=== PATIENT | female | born 1950 | race Caucasian/White ===

== ENCOUNTER → 2019-11-02 15:00 | Outpatient (BNVA) | payer MEDICARE, SELFPAY | PROVIDERS: Family Provider Internal Medicine; PCP Internal Medicine; Visit Provider Nurse Practitioner Family | DX: E03.9 Hypothyroidism, unspecified (principal); E11.9 Type 2 diabetes mellitus without complications; I10 Essential (primary) hypertension; I50.22 Chronic systolic (congestive) heart failure; R53.83 Other fatigue; M25.519 Pain in unspecified shoulder | CPT/HCPCS: 80053; 83036; 84443; 85025 ==

== ENCOUNTER 2019-11-29 14:22 | Outpatient (CLI) | payer MEDICARE, SELFPAY ==
--- NOTE | 2019-11-29 14:28 | XR_ITS ---
WS: [id number] XR hip LT 2-3V wo/w pel* [id number] REASON FOR EXAM: Left hip pain FINDINGS: Mild degenerate changes in the acetabulum on the left hip. No fractures of the left hip are seen. The ilium, ischium, and pubis are normal. XR/XR hip LT 2-3V wo/w pel* [id number] IMPRESSION: Early osteoarthritic changes of the left hip
== END 2019-11-29 14:23 | disposition home or self-care (01) ==
LOC: RAD 14:27
PROVIDERS: PCP Internal Medicine; Visit Provider Internal Medicine
DX: M25.552 Pain in left hip (principal)
CPT/HCPCS: 73502

== ENCOUNTER → 2020-01-26 12:27 | Outpatient (BNVA) | payer MEDICARE, SELFPAY | PROVIDERS: PCP Internal Medicine; Referring Provider Nurse Practitioner Family; Visit Provider Anesthesiology Pain Medicine | DX: G89.29 Other chronic pain (principal); M25.552 Pain in left hip; M54.5 Low back pain; M89.49 Other hypertrophic osteoarthropathy, multiple sites; I50.9 Heart failure, unspecified; Z79.891 Long term (current) use of opiate analgesic | CPT/HCPCS: 99204 ==

== ENCOUNTER 2020-07-02 13:26 | Outpatient (CLI) | payer MEDICARE, SELFPAY ==
--- NOTE | 2020-07-02 13:30 | USCV_ITS ---
Ellen Guerra Age: 69 Gender: F : 1950 Exam Date: 07/02/2020 13:46 Ordering Phys: Sylvie Beckman MD ([email or web address]) Technologist: Jenifer Cline Exam Location: [facility] [place] Indication: MV STENOSIS BP: / HR: 113 Rhythm: Atrial fibrillation Technical Quality: Adequate MEASUREMENTS (Male / Female) Normal Values 2D ECHO LV Diastolic Diameter PLAX 3.7 cm 4.2 - 5.9 / 3.9 - 5.3 cm LV Systolic Diameter PLAX 2.6 cm LV Chamber Size 3.2 cm IVS Diastolic Thickness 1.1 cm 0.6 - 1.0 / 0.6 - 0.9 cm IVS Systolic Thickness 1.5 cm LVPW Diastolic Thickness 1.3 cm 0.6 - 1.0 / 0.6 - 0.9 cm LVPW Systolic Thickness 1.5 cm RV Chamber Size 3.2 cm LVOT Diameter 2.0 cm LV Ejection Fraction 2D Teich 59.4 % LV Ejection Fraction MOD 2C 64.7 % LV Ejection Fraction 2C AL 64.5 % LA Diameter 4.4 cm LA Width 4.0 cm LA Height 5.5 cm RA Width 2.5 cm RA Height 4.7 cm Aorta at Sinotubular Diameter 2.8 cm M-MODE LV Diastolic Diameter MM 4.5 cm 4.2 - 5.9 / 3.9 - 5.3 cm LV Systolic Diameter MM 3.4 cm LV Ejection Fraction MM Teich 48.1 % IVS Diastolic Thickness MM 1.0 cm 0.6 - 1.0 / 0.6 - 0.9 cm IVS Systolic Thickness MM 1.1 cm LVPW Diastolic Thickness MM 1.0 cm 0.6 - 1.0 / 0.6 - 0.9 cm LVPW Systolic Thickness MM 1.3 cm RV Diastolic Diameter MM 2.3 cm Aortic Annulus Diameter 3.0 cm LA Ao Ratio MM 1.5 MV E Point Septal Separation 0.8 cm DOPPLER AV Peak Velocity 137.0 cm/s LVOT Peak Velocity 80.0 cm/s AV Area Cont Eq vti 2.1 cm squared AV Area Cont Eq pk 1.9 cm squared MV Area PHT 4.1 cm squared MV E' Velocity 75.5 cm/s Mitral E to MV E' Ratio 16.8 Mitral E to LV E' Lateral Ratio 17.0 Mitral E to LV E' Septal Ratio 16.8 TR Peak Velocity 129.1 cm/s TR Peak Gradient 6.7 mmHg TR Mean Velocity 81.4 cm/s TR Mean Gradient 3.3 mmHg TR Velocity Time Integral 22.7 cm TV Peak E Velocity 94.0 cm/s Right Atrial Pressure 3.0 mmHg Pulmonary Artery Systolic Pressu 9.7 mmHg PV Peak Velocity 66.0 cm/s RV Acceleration Time 0.1 s RV Ejection Time 0.3 s RV AcT/ET 0.4 FINDINGS Left Ventricle Normal left ventricular cavity size. Normal left ventricular wall thickness. Normal left ventricular systolic function. Left ventricular ejection fraction is estimated at 55 %. No diagnostic regional wall motion abnormality. Rhythm precludes evaluation of diastolic function. Abnormal septal motion consistent with conduction abnormality. Right Ventricle Normal right ventricular size and systolic function. Right ventricular systolic pressure 9.7 mmHg. Right Atrium Normal right atrial size. Left Atrium Moderately increased left atrial size. Mitral Valve Mild mitral annular calcification. Thickened mitral valve. No mitral valve stenosis. Mild mitral valve regurgitation. Aortic Valve Mildly thickened trileaflet aortic valve. No aortic valve stenosis. Mild aortic valve regurgitation. Tricuspid Valve Structurally normal tricuspid valve. Trace tricuspid valve regurgitation. Pulmonic Valve Structurally normal pulmonic valve. Trace pulmonary valve regurgitation. Pericardium No pericardial effusion. Aorta Normal size aortic root and proximal ascending aorta. CONCLUSIONS 1. This is a technically difficult study. 2. Normal left ventricular cavity size and systolic function. Left ventricular ejection fraction is estimated at 55 %. No diagnostic regional wall motion abnormality. Abnormal septal motion consistent with conduction abnormality. 3. Normal right ventricular size and systolic function. 4. Mild aortic valve regurgitation. 5. When compared to previous echocardiogram dated 12/13/2018, there may not have been any significant change. Sylvie Beckman MD (Electronically Signed) Final Date: 03 July 2020 17:29 S
== END 2020-07-02 13:27 | disposition home or self-care (01) ==
LOC: US 13:30
PROVIDERS: PCP Internal Medicine; Visit Provider Internal Medicine Cardiovascular Disease
DX: I08.0 Rheumatic disorders of both mitral and aortic valves
CPT/HCPCS: 93306

== ENCOUNTER → 2020-08-20 09:23 | Outpatient (BNVA) | payer MEDICARE, SELFPAY | PROVIDERS: PCP Internal Medicine; Visit Provider Anesthesiology Pain Medicine | DX: G89.29 Other chronic pain (principal); M54.9 Dorsalgia, unspecified; M89.49 Other hypertrophic osteoarthropathy, multiple sites; M25.552 Pain in left hip; M25.512 Pain in left shoulder; I50.32 Chronic diastolic (congestive) heart failure | CPT/HCPCS: 99214 ==

== ENCOUNTER → 2020-10-01 14:22 | Outpatient (BNVA) | payer MEDICARE, SELFPAY | PROVIDERS: PCP Internal Medicine; Visit Provider Anesthesiology Pain Medicine | DX: G89.29 Other chronic pain (principal); M25.552 Pain in left hip; M54.9 Dorsalgia, unspecified | CPT/HCPCS: 20610; 77002; J1030; J3490 ==

== ENCOUNTER → 2020-11-05 15:24 | Outpatient (BNVA) | payer MEDICARE, SELFPAY | PROVIDERS: PCP Internal Medicine; Visit Provider Internal Medicine Cardiovascular Disease | DX: I11.0 Hypertensive heart disease with heart failure (principal); I50.32 Chronic diastolic (congestive) heart failure; I34.0 Nonrheumatic mitral (valve) insufficiency; E03.9 Hypothyroidism, unspecified | CPT/HCPCS: 80053; 80061; 84439; 84443; 84481; 85025 ==

== ENCOUNTER → 2021-03-14 09:51 | Outpatient (BNVA) | payer MEDICARE, SELFPAY | PROVIDERS: PCP Internal Medicine; Visit Provider Internal Medicine | DX: R30.0 Dysuria (principal) | CPT/HCPCS: 81003 ==

== ENCOUNTER 2021-12-20 17:12 | Emergency (ER) | payer MEDICARE, SELFPAY ==
[2021-12-20 17:20] VITALS: BP 128/88; PULSE 125; RESP 20; TEMP 37; O2SAT 98
--- NOTE | 2021-12-20 17:24 | ECG_ITS ---
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 Measurements Intervals [place] Rate: 119 P: LA: QRS: 75 QRSD: 89 T: 13 QT: 314 QTc: 442 Interpretive Statements ATRIAL FIBRILLATION WITH RAPID VENTRICULAR RESPONSE LOW QRS VOLTAGE IN PRECORDIAL LEADS [QRS DEFLECTION < 1.0 mV IN CHEST LEADS] MINIMAL ST DEPRESSION [0.025+ mV ST DEPRESSION] ABNORMAL RHYTHM ECG Compared to ECG 02/23/2019 05:47:59 Low QRS voltage now present ST (T wave) deviation now present Atrial abnormality no longer present T-wave abnormality no longer present Electronically Signed On 12-22-2021 23:41:35 CDT by Yoan Lancaster M.D. [id number]
--- NOTE | 2021-12-20 18:14 | PC.NURSE ---
This nurse went to grab the patient from the waiting room. Patient was in the bathroom finishing up, when this nurse walked in and asked if she was almost done. She said yes then proceeded to ask this nurse if it was past 1600, because that is her husbands masturbation time and he'll lay you out if you mess it up . When this nurse got the patient into the wheelchair, the patient asked if this nurse was taking her to go watch (this nurse) masturbate. This nurse did not respond. After we got under way, the patient said that it wouldn't be bad (watching her masturbate), but he points it at her, and she needs more nourishment than sperm. After we got into the ER, the patient stated that it wouldn't be so bad, but he eats garlic and onions. Then, once we got into the room, the patient asked who does she has to blow around here to get a cup of water . This nurse responded that she can get some water after seeing the doctor.
--- NOTE | 2021-12-20 18:32 | CTR_ITS ---
PROCEDURE INFORMATION: Exam: CT Head Without Contrast Exam date and time: 12/20/2021 7:14 PM Age: 71 years old Clinical indication: Altered mental status/memory loss; Additional info: AMS TECHNIQUE: Imaging protocol: Computed tomography of the head without contrast. Sagittal and coronal reformatted images were created and reviewed. Radiation optimization: All CT scans at this facility use at least one of these dose optimization techniques: automated exposure control; mA and/or kV adjustment per patient size (includes targeted exams where dose is matched to clinical indication); or iterative reconstruction. COMPARISON: CT head wo con* [id number] 12/13/2018 11:03 PM RADIATION DOSE METRICS: Total DLP (mGy-cm): 1023.28 FINDINGS: Brain: No acute intracranial hemorrhage. No acute infarct. No intra-axial or extra-axial masses. Baker-white matter differentiation is preserved. No cerebral edema. No extra-axial fluid collections. No midline shift. No evidence for Chiari 1 malformation. 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 Stable mild atrophy of the brain parenchyma. Stable moderately decreased attenuation in the deep white matter, consistent with moderate chronic microangiopathic change. New large area of encephalomalacia consistent with an old infarct in the right temporal lobe. Cerebral ventricles: No hydrocephalus. Paranasal sinuses: Visualized paranasal sinuses are clear. Mastoid air cells: Mastoid air cells are clear bilaterally. Orbital cavities: Globes and lenses, extraocular muscles, and optic nerves are intact bilaterally. No acute intraorbital abnormality. Nasal cavity: Mild left nasal septal deviation. Bones/joints: No acute fracture. Soft tissues: The extracranial soft tissues are unremarkable. Vasculature: Atherosclerotic changes in the visualized arteries. CT/CT head wo con* [id number] IMPRESSION: 1. No acute abnormality of the brain. 2. 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 3. Stable mild atrophy of the brain parenchyma. 4. Stable moderate chronic white matter microangiopathic change. 5. New large area of encephalomalacia consistent with an old infarct in the right temporal lobe. 6. Incidental/nonacute findings are listed in the report.
--- NOTE | 2021-12-20 18:37 | ED_ITS ---
HPI - General Adult General: Chief complaint: Psychiatric Symptoms Stated complaint: mhe Time Seen by Provider: 12/20/21 17:23 History of Present Illness: HPI: [71]yo patient w/ hx of bipolar disorder and schizophrenia BIBA for acute psychosis. for On arrival, the patient is AAOx3 and cooperative with my evaluation. No focal complaints of chest pain, shortness of breath, palpitations, N/V, focal GI/ complaints. Currently denies SI/HI. No complaints of hallucinations. Onset: acute on chronic Duration: ongoing Location: home Severity: severe Associated symptoms: Deny chest pain, dyspnea, nausea, rash, palpitations or vomiting Review of Systems Const: Denies: fever(s) or chills Eyes: Denies: change in vision ENMT: Denies: mouth pain Card: Denies: chest pain or palpitations Resp: Denies: dyspnea or non-productive cough GI: Denies: abdominal pain, nausea, vomiting or diarrhea : Denies: dysuria Musc: Denies: extremity pain Skin/Breast: Denies: rash or new lesions Neuro: Denies: weakness in extremities Psych: Reports: mood swings and other (+Delusions) Chato/Lymph: Denies: easy bruising PFSH ED PFSH: Medical History Atrial fibrillation Carpal tunnel syndrome of right wrist FH: cholecystectomy 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 senior living (current) use of opiate analgesic Mitral regurgitation Pain management contract signed Unspecified systolic (congestive) heart failure Surgical History H/O tubal ligation H/O: hysterectomy Family History Father , AGE 56 Cancer Diabetes Other CAD (coronary artery disease) 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 Social History Smoking and tobacco status: never smoked Second hand smoke exposure: No Alcohol intake: never Marital status: History of recent travel: No Current gender identity: Female Physical Exam Const: COMMON NORMALS: alert HENMT: COMMON NORMALS: atraumatic HEAD & SCALP: atraumatic MOUTH: moist mucous membranes not abnormal Eye: COMMON NORMALS: EOMs intact bilaterally and conjunctivae normal CONJUNCTIVA: Yes conjunctivae normal Neck/C-Spine: COMMON NORMALS: full ROM and supple Resp: COMMON NORMALS: normal respiratory effort and clear to auscultation bilaterally AUSCULTATION: clear to auscultation bilaterally Cardio: OTHER: +irregular irregular rythm GI: COMMON NORMALS: Soft to palpation and non-tender PALPATION: Yes Soft to palpation Extremity: COMMON NORMALS: full ROM Neuro: SENSORIUM/ORIENTATION: Yes alert MOTOR EXAM: No Abnormal motor strength present and Other motor observations present (no focal motor deficits) Psych: SPEECH: Yes incoherent and Yes rapid MOOD & AFFECT: Yes euthymic mood Course Vital Signs: Vital signs: Vital Signs Temperature 98.6 F 12/20/21 17:20 Pulse Rate 125 H 12/20/21 17:20 Respiratory Rate 20 H 12/20/21 17:20 Blood Pressure 128/88 12/20/21 17:20 Pulse Oximetry 98 12/20/21 17:20 MDM - General Adult Medical Decision Making [71]yo patient w/ hx of atrial fibrillation, HTN, bipolar and schizophrenia presenting for acute delusion. HDS, exam within normal limit Thoughts are linear and organized, and the patient has no AH/VH, or HI. Clinically the patient displays no overt toxidrome; they are well appearing, with low suspicion for toxic ingestion given history and exam. Symptoms unlikely 2/2 anemia, hypothyroidism, infection, or ICH. Workup: CBC, CMP, Lipase, salicylate/tylenol, UDS, UA, CT Lab findings: wnl [7:45pm] On reassessment, labs and workup wnl. Patient is hemodynamically stable with no acute medical complaints. Case discussed with psychiatric provider Dr. Boggs at [facility] [place] psych inpatient with recommendation for admission Disposition: Xfer to [facility] facility Lab Data : 12/20/21 19:28 12/20/21 19:[address] 12/20/21 18:32 IMPRESSION: 1. No acute abnormality of the brain. 2. 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 3. Stable mild atrophy of the brain parenchyma. 4. Stable moderate chronic white matter microangiopathic change. 5. New large area of encephalomalacia consistent with an old infarct in the right temporal lobe. 6. Incidental/nonacute findings are listed in the report. Laboratory Results WBC 7.3 10^3/uL (4.0-10.0) 12/20/21 19: RBC 5.18 10^6/uL (4.1-5.3) 12/20/21 19: Hgb 15.9 g/dL (11.5-15.3) H 12/20/21 19: Hct 46.6 % (37.0-47.0) 12/20/21: MCV 90.0 fl (81-99) 12/20/21 19: MCH 30.7 pg (28.0-34.0) 12/20/21 19: MCHC 34.1 g/dL (30.0-36.0) 12/20/21: RDW 13.1 % (12.1-15.1) 12/20/21: Plt Count 244 10^3/cmm (130-400) 12/20/21: MPV 11.8 fL (7.4-10.4) H 12/20/21 19: Neut % (Auto) 73.3 % 12/20/21 19: Lymph % (Auto) 15.8 % 12/20/21 19: [place] % (Auto) 8.2 % 12/20/21 19: Eos % (Auto) 1.1 % 12/20/21: Baso % (Auto) 1.2 % 12/20/21: Neut # (Auto) 5.35 10^3/uL (1.8-7.7) 12/20/21: Lymph # (Auto) 1.2 10^3/uL (0.8-4.8) 12/20/21 19: [place] # (Auto) 0.6 10^3/uL (0.2-0.9) 12/20/21 19: Eos # (Auto) 0.1 10^3/uL (0.0-0.8) 12/20/21: Baso # (Auto) 0.1 10^3/uL (0.0-0.1) 12/20/21 19: Nucleated RBC % (auto) 0 % 12/20/21: Nucleated RBCs # 0.0 /100WBC 12/20/21 19: Sodium 141 mmol/L (136-145) 12/20/21 19:28 Potassium 4.2 mmol/L (3.5-5.1) 12/20/21 19:28 Chloride 104 mmol/L (98-107) 12/20/21 19: Carbon Dioxide 22 mmol/L (22-29) 12/20/21 19: Anion Gap 19.2 (5-19) H 12/20/21 19:28 BUN 33 mg/dL (8-23) H 12/20/21 19: Creatinine 1.2 mg/dL (0.5-0.9) H 12/20/21 19:28 GFR Calculation Not Reportable 12/20/21: Glucose 104 mg/dL (65-115) 12/20/21: Calculated Osmolality 300 mOsm/kg (285-295) H 12/20/21: Calcium 10.0 mg/dL (8.5-10.5) 12/20/21: Total Bilirubin 0.5 mg/dL (0.15-1.2) 12/20/21: AST 25 U/L (0-32) 12/20/21: ALT 15 U/L (0-33) 12/20/21 19: Alkaline Phosphatase 68 IU/L (35-105) 12/20/21: Total Protein 7.2 g/dL (6.6-8.7) 12/20/21: Albumin 3.9 g/dL (3.5-5.2) 12/20/21: Globulin 3.3 g/dL (1.3-4.6) 12/20/21 19: Lipase 47 U/L (13-60) 12/20/21 19:28 TSH 4.58 uIU/mL (0.27-4.20) H 12/20/21 19:28 Free T4 0.90 ng/dL (0.82-1.77) 12/20/21 19: Urine Color Yellow (Yellow) 12/20/21 20:50 Urine Appearance Clear (CLEAR) 12/20/21 20:50 Urine pH 5 (5-7) 12/20/21 20:50 Ur Specific [place] 1.030 (1.005-1.030) 12/20/21 20:50 Urine Protein Trace (Negative) 12/20/21 20:50 Urine Glucose (UA) Norm (Normal) 12/20/21 20:50 Urine Ketones 1+ (Negative) H 12/20/21 20:50 Urine Blood 3+ (Negative) H 12/20/21 20:50 Urine Nitrate Negative (Negative) 12/20/21 20:50 Urine Bilirubin Neg (Negative) 12/20/21 20:50 Urine Urobilinogen 1 mg/dL (Negative) H 12/20/21 20:50 Ur Leukocyte Esterase Trace (Negative) H 12/20/21 20:50 Urine RBC 0-4 /hpf (0-2) H 12/20/21 20:50 Urine WBC 0-4 /hpf (0-5) H 12/20/21 20:50 Ur Squamous Epith Cells 15-25 /hpf (0-5) H 12/20/21 20:50 Calcium Oxalate Crystal 15-25 /hpf H 12/20/21 20:50 Amorphous Sediment Not Reportable 12/20/21 20:50 Urine Bacteria 1+ /hpf (NONE) H 12/20/21 20:50 Urine Mucus Trace /hpf 12/20/21 20:50 Salicylates < 0.3 mg/dL (3-10) L 12/20/21 19:28 Urine Opiates Screen Negative ng/mL (Negative) 12/20/21 20:50 Acetaminophen < 5.0 ug/mL (10-30) L 12/20/21 19:28 Ur Barbiturates Screen Negative ng/mL (Negative) 12/20/21 20:50 Ur Phencyclidine Scrn Negative ng/mL (Negative) 12/20/21 20:50 Ur Amphetamines Screen Negative ng/mL (Negative) 12/20/21 20:50 U Benzodiazepines Scrn Negative ng/mL (Negative) 12/20/21 20:50 Urine Cocaine Screen Negative ng/mL (Negative) 12/20/21 20:50 U Marijuana (THC) Screen Negative ng/mL (Negative) 12/20/21 20:50 Ethyl Alcohol < 10 mg/dL (0-10) 12/20/21 19:28 SARS-CoV-2 Ag (Rapid) Negative (Negative) 12/20/21 20:54 Imaging Data Other Imaging: Radiologist's impression: Interview [address] [address] [address] Scan Report Signed Patient: Ellen Guerra Unit #: [id number] : 1950 Age/Sex: 71 / F ADM Date: 12/20/21 Loc: ER Room/Bed: Attending Dr: Ordering Provider/Ordering MD: Isaiah Santiago MD Date of Service: 12/20/21 Procedure(s): CT head wo con* [id number] Accession Number(s): [id number] Report Number: [id number] PROCEDURE INFORMATION: Exam: CT Head Without Contrast Exam date and time: 12/20/2021 7:14 PM Age: 71 years old Clinical indication: Altered mental status/memory loss; Additional info: AMS TECHNIQUE: Imaging protocol: Computed tomography of the head without contrast. Sagittal and coronal reformatted images were created and reviewed. Radiation optimization: All CT scans at this facility use at least one of these dose optimization techniques: automated exposure control; mA and/or kV adjustment per patient size (includes targeted exams where dose is matched to clinical indication); or iterative reconstruction. COMPARISON: CT head wo con* [id number] 12/13/2018 11:03 PM RADIATION DOSE METRICS: Total DLP (mGy-cm): 1023.28 FINDINGS: Brain: No acute intracranial hemorrhage. No acute infarct. No intra-axial or extra-axial masses. Baker-white matter differentiation is preserved. No cerebral edema. No extra-axial fluid collections. No midline shift. No evidence for Chiari 1 malformation. 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 Stable mild atrophy of the brain parenchyma. Stable moderately decreased attenuation in the deep white matter, consistent with moderate chronic microangiopathic change. New large area of encephalomalacia consistent with an old infarct in the right temporal lobe. Cerebral ventricles: No hydrocephalus. Paranasal sinuses: Visualized paranasal sinuses are clear. Mastoid air cells: Mastoid air cells are clear bilaterally. Orbital cavities: Globes and lenses, extraocular muscles, and optic nerves are intact bilaterally. No acute intraorbital abnormality. Nasal cavity: Mild left nasal septal deviation. Bones/joints: No acute fracture. Soft tissues: The extracranial soft tissues are unremarkable. Vasculature: Atherosclerotic changes in the visualized arteries. CT/CT head wo con* [id number] IMPRESSION: 1. No acute abnormality of the brain. 2. 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 3. Stable mild atrophy of the brain parenchyma. 4. Stable moderate chronic white matter microangiopathic change. 5. New large area of encephalomalacia consistent with an old infarct in the right temporal lobe. 6. Incidental/nonacute findings are listed in the report. ? Dictated By: Steph Schaffer MD Signed By: Steph Schaffer MD Signed Date/Time: 12/20/212031 DD/ 13 Discharge Plan Discharge Clinical Impression: Schizophrenia, Bipolar disorder, Psychosis, Delusion Condition: Stable Prescriptions: No Action No Known Home Medications 0RF Rx Instructions: SEE PHARMACY NOTE Referrals: Efraín Flowers MD [Primary Care Provider] - Coding Level of Care Code ED Engineer Remote Control Diesel for Vinceg Fwd Exam Comprehensive
[2021-12-20 19:34] LABS: Basophils # 0.1 10^3/uL (0.0-0.1); Basophils % 1.2 %; Eosinophils # 0.1 10^3/uL (0.0-0.8); Eosinophils % 1.1 %; Hematocrit 46.6 % (37.0-47.0); Hemoglobin 15.9 g/dL (11.5-15.3); Lymphocytes # 1.2 10^3/uL (0.8-4.8); Lymphocytes % 15.8 %; Mean Corpuscular HGB Conc 34.1 g/dL (30.0-36.0); Mean Corpuscular Hemoglobin 30.7 pg (28.0-34.0); Mean Platelet Volume 11.8 fL (7.4-10.4); Monocytes # 0.6 10^3/uL (0.2-0.9); Monocytes % 8.2 %; Neutrophils # 5.35 10^3/uL (1.8-7.7); Neutrophils % 73.3 %; Nucleated Red Blood Cells % 0 %; Platelet Count 244 10^3/cmm (130-400); Red Blood Count 5.18 10^6/uL (4.1-5.3); Red Cell Distribution Width 13.1 % (12.1-15.1); White Blood Count 7.3 10^3/uL (4.0-10.0)
[2021-12-20 20:10] LABS: Alanine Aminotransferase 15 U/L (0-33); Albumin Level 3.9 g/dL (3.5-5.2); Alkaline Phosphatase 68 IU/L (35-105); Anion Gap 19.2 (5-19); Aspartate Amino Transferase 25 U/L (0-32); Blood Urea Nitrogen 33 mg/dL (8-23); Carbon Dioxide 22 mmol/L (22-29); Chloride 104 mmol/L (98-107); Globulin 3.3 g/dL (1.3-4.6); Glucose 104 mg/dL (65-115); Lipase 47 U/L (13-60); Osmolality Calculated 300 mOsm/kg (285-295); Potassium 4.2 mmol/L (3.5-5.1); Sodium 141 mmol/L (136-145); Thyroid Stimulating Hormone 4.58 uIU/mL (0.27-4.20); Total Bilirubin 0.5 mg/dL (0.15-1.2); Total Protein 7.2 g/dL (6.6-8.7)
[2021-12-20 20:12] LABS: Acetaminophen < 5.0 ug/mL (10-30); Alcohol Level < 10 mg/dL (0-10); Salicylate < 0.3 mg/dL (3-10)
--- NOTE | 2021-12-20 20:53 | PC.PHAR ---
PTS DAUGHTER ANAMIKA NARAYANAN STATES THE PT HASNT TAKEN MEDICATIONS IN YEARS STATES THE PT REFUSES TO TAKE MEDS BECAUSE SHE WANTS TO PER PTS DAUGHTER ANAMIKA-EXT MED SHOWS MEDS LAST FILLED ELIQUIS 5MG BID 01/14/21-CYMBALTA 60MG BID 01/14/21-CELEBREX 100MG BID 01/14/21-LISINOPRIL 30MG DAILY 01/14/22-RXS LAST WRITTEN FOR LEVOTHYROXINE 50MCG DAILY ON 11/02/2019 AND METOPROLOL TARTRATE 25MG BID WROTTEN 06/06/2020-
[2021-12-20 21:18] LABS: Amphetamines Screen Urine Negative (Negative); Barbiturates Screen Urine Negative (Negative); Benzodiazepines Screen Urine Negative (Negative); Cocaine Screen Urine Negative (Negative); Opiate Screen Urine Negative (Negative); PCP Screen Urine Negative (Negative); THC Screen Urine Negative (Negative)
[2021-12-20 21:24] LABS: Add Urine Microscopic? YES; Bilirubin Urine Neg (Negative); Blood Urine 3+ (Negative); Glucose Urine UA Norm (Normal); Ketones Urine 1+ (Negative); Leukocyte Esterase Urine Trace (Negative); Nitrate Urine Negative (Negative); Protein Urine Trace (Negative); Urine Appearance Clear (CLEAR); Urine Color Yellow (Yellow); Urobilinogen Urine 1 mg/dL (Negative); pH Urine 5 (5-7)
[2021-12-20 21:25] LABS: SARS Covid-2 Antigen Negative (Negative)
[2021-12-20 21:25] LABS: Bacteria Urine 1+ /hpf; Calcium Oxalate Crystals Urine 15-25 /hpf; Mucus Urine TRACE /hpf; RBC Urine 0-4 /hpf (0-2); Squamous Epithelial Cell Urine 15-25 /hpf (0-5); WBC Urine 0-4 /hpf (0-5)
[2021-12-20 21:26] LABS: Add Urine Culture? No
[2021-12-20] MEDS: LORazepam 1 mg Tablet PO (22:42)
[2021-12-20] MEDS: ziprasidone 20 mg/mL SDV IM (23:18)
[2021-12-21 06:31] VITALS: BP 130/80; PULSE 92; RESP 16; O2SAT 94
--- NOTE | 2021-12-21 12:02 | XRR_ITS ---
PROCEDURE INFORMATION: Exam: XR Chest Exam date and time: 12/21/2021 12:19 PM Age: 71 years old Clinical indication: Pain; Chest pressure; Additional info: Chest pain TECHNIQUE: Imaging protocol: Radiologic exam of the chest. Views: 1 view. COMPARISON: CR Chest 1 [place] [id number] 02/22/2019 3:32 PM FINDINGS: Lungs: Unremarkable. No consolidation. Pulmonary vascularity is within normal limits. Pleural spaces: Unremarkable. No pleural effusion. No pneumothorax. Heart/Mediastinum: There is unchanged cardiomegaly. Bones/joints: No acute abnormality. XR/XR chest 1V portable [id number] IMPRESSION: No acute findings.
[2021-12-21 19:17] VITALS: BP 127/77; PULSE 86; RESP 17; TEMP 37; O2SAT 95
--- NOTE | 2021-12-21 19:18 | PC.NURSE ---
Checked on pt and asked if she needed anything to eat or drink. PT states that she is good for right now. PT was given another blanket.
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
--- NOTE | 2021-12-21 22:36 | PC.NURSE ---
called report to fletcher daryn.
[2021-12-21] MEDS: midazolam 1 mg/mL INJ 2 mL 2 MG IM (23:39)
[2021-12-22 00:03] VITALS: BP 127/77; PULSE 86; RESP 17; TEMP 37; O2SAT 95
== END 2021-12-22 00:07 ==
PROVIDERS: Emergency Provider Emergency Medicine; PCP Internal Medicine
DX: F29 Unspecified psychosis not due to a substance or known physiological condition (principal); F20.9 Schizophrenia, unspecified; F31.9 Bipolar disorder, unspecified; F22 Delusional disorders
CPT/HCPCS: 70450; 71045; 80053; 80306; 80307; 81001; 83690; 84439; 84443; 85025; 87426; 93005; 96372; 99285; J2250; J3486

== ENCOUNTER 2022-03-01 14:09 | Emergency (ER) | payer MEDICARE, SELFPAY ==
[2022-03-01 14:11] VITALS: BP 134/87; PULSE 118; RESP 16; TEMP 36.9; O2SAT 97; BMI 35.0
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
--- NOTE | 2022-03-01 14:50 | ECG_ITS ---
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 Measurements Intervals [place] Rate: 110 P: MD: QRS: 84 QRSD: 82 T: 28 QT: 328 QTc: 445 Interpretive Statements ATRIAL FIBRILLATION WITH RAPID VENTRICULAR RESPONSE Minor diffuse ST and T wave changes LOW QRS VOLTAGE IN PRECORDIAL LEADS [QRS DEFLECTION < 1.0 mV IN CHEST LEADS] ABNORMAL RHYTHM ECG Compared to ECG 12/20/2021 18:21:39 No change Electronically Signed On 03-02-2022 8:33:08 CDT by Demario Schreiber M.D. [id number]
[2022-03-01 15:00] LABS: Basophils # 0.1 10^3/uL (0.0-0.1); Basophils % 1.3 %; Eosinophils # 0.1 10^3/uL (0.0-0.8); Eosinophils % 1.5 %; Hematocrit 49.6 % (37.0-47.0); Hemoglobin 16.3 g/dL (11.5-15.3); Lymphocytes % 16.1 %; Mean Corpuscular HGB Conc 32.9 g/dL (30.0-36.0); Mean Corpuscular Volume 94.3 fl (81-99); Mean Platelet Volume 11.9 fL (7.4-10.4); Monocytes # 0.5 10^3/uL (0.2-0.9); Monocytes % 7.4 %; Neutrophils # 4.49 10^3/uL (1.8-7.7); Neutrophils % 73.5 %; Nucleated Red Blood Cells % 0 %; Platelet Count 210 10^3/cmm (130-400); Red Blood Count 5.26 10^6/uL (4.1-5.3); Red Cell Distribution Width 13.2 % (12.1-15.1); White Blood Count 6.1 10^3/uL (4.0-10.0)
[2022-03-01] MEDS: metoprolol tartrate 25 mg Tablet PO (15:23)
[2022-03-01 15:25] LABS: Alanine Aminotransferase 14 U/L (0-33); Albumin Level 3.9 g/dL (3.5-5.2); Alkaline Phosphatase 83 U/L (35-105); Aspartate Amino Transferase 23 U/L (0-32); Blood Urea Nitrogen 28 mg/dL (8-23); Calcium 9.1 mg/dL (8.5-10.5); Carbon Dioxide 22 mmol/L (22-29); Chloride 109 mmol/L (98-107); Globulin 3.2 g/dL (1.3-4.6); Glucose 99 mg/dL (65-115); Osmolality Calculated 302 mOsm/kg (285-295); Sodium 143 mmol/L (136-145); Total Bilirubin 0.6 mg/dL (0.15-1.2); Total Protein 7.1 g/dL (6.6-8.7)
[2022-03-01 15:28] LABS: Acetaminophen < 5.0 ug/mL (10-30); Alcohol Level < 10 mg/dL (0-10); Salicylate < 0.3 mg/dL (3-10)
[2022-03-01 15:29] VITALS: BP 126/81; PULSE 106; RESP 18; O2SAT 96
[2022-03-01 15:29] LABS: Anion Gap 16.3 (5-19); Potassium 4.3 mmol/L (3.5-5.1)
--- NOTE | 2022-03-01 15:29 | PC.PHAR ---
Patient's son states she does not take any medications and refuses. Patient states she thinks she takes medications but is unsure and unable to verify. Meds last filled in December
[2022-03-01 15:43] LABS: SARS Covid-2 Antigen Negative (Negative)
[2022-03-01 17:06] VITALS: BP 128/70
[2022-03-01 17:07] VITALS: BP 128/70; PULSE 86; O2SAT 96
== END 2022-03-01 17:10 | disposition home or self-care (01) ==
PROVIDERS: Emergency Provider Emergency Medicine; PCP Internal Medicine
DX: F32.A Depression, unspecified (principal)
CPT/HCPCS: 36415; 80053; 80307; 85025; 87426; 93005; 99284

== ENCOUNTER 2022-03-03 19:19 | Emergency (ER) | payer MEDICARE, SELFPAY ==
[2022-03-03 19:37] VITALS: BP 113/76; PULSE 106; RESP 18; TEMP 36.6; O2SAT 100; BMI 35.0
[2022-03-03 20:16] LABS: Basophils # 0.1 10^3/uL (0.0-0.1); Basophils % 0.8 %; Eosinophils # 0.2 10^3/uL (0.0-0.8); Hematocrit 45.8 % (37.0-47.0); Hemoglobin 15.3 g/dL (11.5-15.3); Lymphocytes # 1.3 10^3/uL (0.8-4.8); Lymphocytes % 17.7 %; Mean Corpuscular HGB Conc 33.4 g/dL (30.0-36.0); Mean Corpuscular Hemoglobin 31.4 pg (28.0-34.0); Mean Platelet Volume 12.3 fL (7.4-10.4); Monocytes # 0.7 10^3/uL (0.2-0.9); Monocytes % 9.4 %; Neutrophils # 5.13 10^3/uL (1.8-7.7); Nucleated Red Blood Cells % 0 %; Platelet Count 206 10^3/cmm (130-400); Red Blood Count 4.87 10^6/uL (4.1-5.3); Red Cell Distribution Width 13.3 % (12.1-15.1); White Blood Count 7.4 10^3/uL (4.0-10.0)
[2022-03-03 20:36] LABS: Alanine Aminotransferase 15 U/L (0-33); Albumin Level 3.5 g/dL (3.5-5.2); Alkaline Phosphatase 81 U/L (35-105); Anion Gap 17.8 (5-19); Aspartate Amino Transferase 28 U/L (0-32); Blood Urea Nitrogen 34 mg/dL (8-23); Calcium 9.8 mg/dL (8.5-10.5); Carbon Dioxide 18 mmol/L (22-29); Chloride 106 mmol/L (98-107); Globulin 3.2 g/dL (1.3-4.6); Glucose 109 mg/dL (65-115); Osmolality Calculated 294 mOsm/kg (285-295); Potassium 3.8 mmol/L (3.5-5.1); Sodium 138 mmol/L (136-145); Total Bilirubin 0.9 mg/dL (0.15-1.2); Total Protein 6.7 g/dL (6.6-8.7)
[2022-03-03 20:46] LABS: Acetaminophen < 5.0 ug/mL (10-30); Salicylate < 0.3 mg/dL (3-10)
--- NOTE | 2022-03-03 21:09 | PC.NURSE ---
Pts daughter was here, signed paperwork to be seen, no other paperwork filled out, pt [id number] able to sign for self. Pt to be dc'd per doctor Potts
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
--- NOTE | 2022-03-03 23:40 | PC.NURSE ---
Assisted pt to restroom. No complications. Pt assisted back to room and milk provided at pt request.
[2022-03-04 00:10] LABS: Amphetamines Screen Urine Negative (Negative); Barbiturates Screen Urine Negative (Negative); Benzodiazepines Screen Urine Negative (Negative); Cocaine Screen Urine Negative (Negative); Opiate Screen Urine Negative (Negative); PCP Screen Urine Negative (Negative); THC Screen Urine Negative (Negative)
[2022-03-04 00:19] LABS: Protein Urine Trace (Negative); Urine Appearance SL Hazy (CLEAR); Urine Color Yellow (Yellow); pH Urine 5 (5-7)
[2022-03-04 00:20] LABS: Add Urine Microscopic? YES; Bilirubin Urine 1+ (Negative); Blood Urine 2+ (Negative); Glucose Urine UA Norm (Normal); Ketones Urine 2+ (Negative); Leukocyte Esterase Urine 1+ (Negative); Nitrate Urine Positive (Negative); Urobilinogen Urine 4 mg/dL (Negative)
[2022-03-04 00:21] LABS: Add Urine Culture? No; Amorphous Sediment Urine 1+ /hpf; Bacteria Urine 2+ /hpf; Mucus Urine 1+ /hpf; Squamous Epithelial Cell Urine TOO NUMEROUS TO CNT /hpf (0-5); WBC Urine 15-25 /hpf (0-5)
[2022-03-04 00:41] LABS: SARS Covid-2 Antigen Negative (Negative)
[2022-03-04] MEDS: cefTRIAXone 1,000 MG in sodium chloride 0.9% (plus) 50 ML 100 MG IV (04:14)
[2022-03-04 06:18] VITALS: BP 122/78; PULSE 102; RESP 16; O2SAT 98
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
== END 2022-03-04 14:20 | disposition home or self-care (01) ==
PROVIDERS: Family Medicine; Student in an Organized Health Care Education/Training Program; Emergency Provider Family Medicine; PCP Internal Medicine
DX: T74.91XA Unspecified adult maltreatment, confirmed, initial encounter (principal); N39.0 Urinary tract infection, site not specified; I50.20 Unspecified systolic (congestive) heart failure; I50.9 Heart failure, unspecified; I48.91 Unspecified atrial fibrillation; Y07.01 Husband, perpetrator of maltreatment and neglect
CPT/HCPCS: 80053; 80306; 80307; 81001; 81003; 85025; 87077; 87086; 87186; 87426; 96365; 96366; 99284; J0696